=== PATIENT | female | born 1970 | race Caucasian/White ===

== ENCOUNTER 2023-04-01 17:54 | Outpatient (CLI) | payer BC, SELFPAY ==
[2023-04-02 17:16] LABS: Hemoglobin A1C 5.4 % (4.0-6.0)
[2023-04-02 17:23] LABS: Chloride 103 mmol/L (98-107); Potassium 4.4 mmoL/L (3.5-5.1); Sodium 140 mmol/L (136-145)
[2023-04-02 17:25] LABS: Basophils % 0.6 % (0.1-2.0); Eosinophils # 0.5 K/mm3 (0.0-0.4); Eosinophils % 7.2 % (0.1-12.0); Hematocrit 39.4 % (37.0-47.0); Hemoglobin 12.7 g/dL (12.2-16.2); Lymphocytes # 2.6 K/mm3 (0.7-4.5); Lymphocytes % 41.2 % (10-50); Mean Corpuscular HGB Conc 32.3 g/dL (31.8-35.4); Mean Corpuscular Hemoglobin 29.2 pg (27.0-31.2); Mean Corpuscular Volume 90.2 fl (81-99); Mean Platelet Volume 9.1 fl (7.4-10.4); Monocytes # 0.4 K/mm3 (0.1-1.0); Monocytes % 6.4 % (1.7-9.3); Neutrophils # 2.9 K/mm3 (1.8-7.8); Neutrophils % 44.6 % (37.0-80.0); Platelet Count 335 K/mm3 (142-424); Red Blood Count 4.37 M/mm3 (4.20-5.40); Red Cell Distribution Width 15.2 % (11.5-17.5); White Blood Count 6.4 K/mm3 (4.8-10.8)
[2023-04-02 17:26] LABS: Alanine Aminotransferase 24 U/L (12-78); Albumin Level 4.3 g/dl (3.5-5.0); Albumin/Globulin Ratio 1.7 (1.1-1.8); Alkaline Phosphatase 59 U/L (38-126); Anion Gap 12.4 mEq/L (5-15); Aspartate Amino Transferase 32 U/L (14-36); Bilirubin,Total 0.5 mg/dl (0.2-1.3); Blood Urea Nitrogen 17 mg/dl (7-17); Carbon Dioxide 29 mmol/L (22.0-30.0); Cholesterol 196 mg/dl (140-200); Estimated Glomerular Filt Rate 66 ml/min (>60); GFR (African American) 80 ML/MIN (>60); Globulin 2.6 g/dL (1.3-3.2); Total Protein,Serum 6.9 g/dl (6.3-8.2); Triglycerides 42 mg/dl (30-150); VLDL Cholesterol 8 mg/dL (0-40)
[2023-04-02 17:27] LABS: Calcium 8.8 mg/dl (8.4-10.2); Chol/HDL Ratio 2.5 (1-3.5); Glucose 73 mg/dl (74-100); HDL Cholesterol 78 mg/dl (40-60)
[2023-04-02 17:43] LABS: Free T4 (Free Thyroxine) 1.11 ng/dl (0.78-2.19); Triiodothryronine (T3) Uptake 33 % (23.5-40.5)
[2023-04-02 17:58] LABS: Thyroid Stimulating Hormone 2.55 uIU/mL (0.465-4.68)
[2023-04-03 08:15] LABS: LH 63.6 mIU/mL (.)
[2023-04-06 02:09] LABS: Estrogen 117 pg/mL (.)
== END 2023-04-01 23:59 ==
LOC: LAB.DROPOF 04-02 17:55
PROVIDERS: PCP Nurse Practitioner Family; Visit Provider Nurse Practitioner Family
DX: Z79.890 Hormone replacement therapy (principal)
CPT/HCPCS: 80053; 80061; 82672; 83001; 83002; 83036; 84436; 84439; 84443; 84479; 85025

== ENCOUNTER 2023-09-18 10:06 | Day surgery (SDC) | payer BC, SELFPAY ==
[2023-09-13 09:27] VITALS: BMI 31.4
[2023-09-18] VITALS (7 sets, daily range): BP systolic 110–125; BP diastolic 52–73; PULSE 59–63; RESP 16–18; TEMP 36.1–36.3; O2SAT 94–100; BMI 31.4
[2023-09-18] MEDS: LACTATED RINGERS 1000ML 1,000 ML 100 ML IV (10:34)
--- NOTE | 2023-09-18 11:28 | HMH.SCOPE ---
Procedure: Date: 09/18/23 Patient Date of :: 1970 Procedure Performed:: EGD with bougie dilation Indications:: Dysphagia Performing Provider:: Fito Palencia MD Referring Provider:: Camille Palencia APRN Sedation:: Propofol Procedure:: The gastroscope was gently passed through the incisoral orifice into the oral cavity and under direct visualization the esophagus was intubated. The endoscope was passed down the esophagus, through the stomach, and into the duodenum. Color, texture, mucosa, and anatomy of the esophagus, stomach, and duodenum were carefully examined with the scope. Findings:: Oropharynx: normal Esophagus: normal, empiric therapy performed with 58F bougie dilator EG Junction: intact at 40 cm Cardia: normal Fundus: normal Body: normal Antrum: normal Duodenal bulb: normal Duodenum (second and third portion): normal Impression: Symptomatic dysphagia treated with bougie dilation Recommendations:: Consider Repeat dilation in about THREE years or so, sooner if clinically indicated. Complications:: None Estimated blood obtained (mL): 0 Colonoscopy Component Colonoscopy Component Was a colonoscopy performed during today's procedure?: No
--- NOTE | 2023-09-18 11:54 | EXP.ANES.CKL ---
[facility] Disclaimer: The information contained in this section may have been updated after the patient was seen, as this information can be updated by other users. Medical History Low blood pressure reading Dysphagia Carpal tunnel syndrome Seasonal allergies History of endometriosis Anemia Low blood pressure History of basal cell cancer No active medical problems Surgical History History of carpal tunnel release History of hysterectomy Family History Father Diabetes Hypertension Coronary artery disease Anemia Heart attack Hyperlipidemia Stroke Grandfather Cancer Tuberculosis Social History Smoking Status: Never smoker second hand exposure: No alcohol intake: never substance use type: denies use current occupational status: employed Travel in the last 8 weeks: None household members: spouse housing: house marital status: caffeine: Yes [facility] Anesthesia Checklist Patient Identification Patient Identification: Arm Band and Verbal (Name & ) Structural Data Admitted From: Home Planned Operative Procedure/s: EGD Consent for Planned Operative Procedure(s) Verified: Yes NPO Status Verified Time NPO: 00:00 Airway Assessment Mallampati Score:: Class II C-Spine Mobility Assessed: Yes TMJ Mobility Assessed: Yes Dentition: Good Dentition Neurological Assessment Level of Consciousness: Awake Hx Seizures: No Numbness or tingling in extremities: No Anesthesia Plan Anesthesia Risk discussed: Yes Anesthesia Plan: Verified ASA Class: II Anesthesia Type: MAC
== END 2023-09-18 12:08 | disposition home or self-care (01) ==
LOC: OUTP 10:08
PROVIDERS: PCP Nurse Practitioner Family; Visit Provider Internal Medicine Gastroenterology
PROC: 0DJ08ZZ Inspection of Upper Intestinal Tract, Via Natural or Artificial Opening Endoscopic (ICD-10-PCS; CPT 43235; principal; 2023-09-18 11:00)
DX: R13.19 Other dysphagia (principal)
CPT/HCPCS: 43450; J7120

== ENCOUNTER 2023-10-25 11:15 | Day surgery (SDC) | payer BC, SELFPAY ==
[2023-10-25 11:33] VITALS: BMI 31.4
[2023-10-25 11:34] VITALS: BP 133/77; PULSE 65; RESP 17; TEMP 36.8; O2SAT 99
[2023-10-25] MEDS: LACTATED RINGERS 1000ML 1,000 ML 25 ML IV (11:42)
[2023-10-25 12:15] LABS: Chloride 109 mmol/L (98-107); Sodium 140 mmol/L (136-145)
[2023-10-25 12:18] LABS: Blood Urea Nitrogen 14 mg/dl (7-17); Calcium 8.9 mg/dl (8.4-10.2); Carbon Dioxide 28 mmol/L (22.0-30.0); Creatinine Clearance Estimated 102 mL/min (50-200); Estimated Glomerular Filt Rate 66 ml/min (>60); GFR (African American) 80 ML/MIN (>60); Glucose 90 mg/dl (74-100)
[2023-10-25 12:21] LABS: Basophils # 0.1 K/mm3 (0-0.2); Basophils % 0.7 % (0.1-2.0); Eosinophils # 0.5 K/mm3 (0.0-0.4); Eosinophils % 6.5 % (0.1-12.0); Hematocrit 42.3 % (37.0-47.0); Hemoglobin 13.2 g/dL (12.2-16.2); Lymphocytes # 2.8 K/mm3 (0.7-4.5); Mean Corpuscular HGB Conc 31.2 g/dL (31.8-35.4); Mean Corpuscular Hemoglobin 27.7 pg (27.0-31.2); Mean Corpuscular Volume 88.8 fl (81-99); Mean Platelet Volume 8.1 fl (7.4-10.4); Monocytes # 0.5 K/mm3 (0.1-1.0); Neutrophils # 3.8 K/mm3 (1.8-7.8); Neutrophils % 49.8 % (37.0-80.0); Platelet Count 261 K/mm3 (142-424); Red Blood Count 4.77 M/mm3 (4.20-5.40); Red Cell Distribution Width 17.2 % (11.5-17.5); White Blood Count 7.6 K/mm3 (4.8-10.8)
[2023-10-25] MEDS: CLINDAMYCIN PHOSPHATE/D5W 900 MG/50 ML PIGGYBACK 100 MG IV (12:23)
[2023-10-25] MEDS: LIDOCAINE 1% 20ML MDV 20 ML IJ (12:37)
--- NOTE | 2023-10-25 12:37 | P.OP_ITS ---
Date of procedure: 10/25/23 Pre-op Diagnosis:: Left anterior neck abscessed sebaceous cyst Post-op Diagnosis:: Same Procedure performed:: Incision and drainage/debridement of abscessed left anterior neck sebaceous cyst Surgeon:: Alfonzo Ramírez MD [employer]:: Trae Hill Anesthesia: local and LMA Estimated blood loss (mL): 10 Operative findings:: Complex ruptured abscessed cyst projecting to the level of the musculature Operative note:: After informed consent was obtained the patient was taken to the operating room and placed in the supine position. Anesthesia with laryngeal mask airway was achieved. Her left neck was prepped and draped in a sterile fashion. An elliptical incision was made with cautery along the central portion of the palpable lesion. Purulent fluid was evacuated from the subcutaneous tissue. Evaluation revealed a complex ruptured cyst with projection to the level of the musculature. Electrocautery was utilized to resect the ruptured cyst cavity and adjacent necrotic tissue to the degree possible. The wound was irrigated thoroughly and then packed open with Kerlix. The entire region was infiltrated with 1% lidocaine. Dressings were applied and she was transferred to recovery in stable condition. Condition: stable Disposition: PACU Specimens:: Left anterior neck ruptured/abscessed sebaceous cyst Complications:: No immediate
[2023-10-25 12:41] VITALS: BP 116/62; PULSE 68; RESP 17; TEMP 36.2; O2SAT 93
[2023-10-25 12:51] VITALS: BP 115/70; PULSE 62; RESP 17; O2SAT 97
--- NOTE | 2023-10-25 12:53 | P.PNANES_ITS ---
[facility] Disclaimer: The information contained in this section may have been updated after the patient was seen, as this information can be updated by other users. Medical History Low blood pressure reading Dysphagia Carpal tunnel syndrome Seasonal allergies History of endometriosis Anemia Low blood pressure History of basal cell cancer No active medical problems Surgical History Status post balloon dilatation of esophageal stricture History of carpal tunnel release History of hysterectomy Family History Father Diabetes Hypertension Coronary artery disease Anemia Heart attack Hyperlipidemia Stroke Grandfather Cancer Tuberculosis Social History Smoking Status: Never smoker second hand exposure: No alcohol intake: never substance use type: denies use current occupational status: employed Travel in the last 8 weeks: None household members: spouse housing: house marital status: caffeine: Yes [facility] Anesthesia Checklist Patient Identification Patient Identification: Arm Band and Family Structural Data Admitted From: Home Planned Operative Procedure/s: I and D left neck abscess. Consent for Planned Operative Procedure(s) Verified: Yes Verified Documents: Surgical Consent and History and Physical NPO Status Verified Time NPO: 00:00 Additional verifications Patient : No Anesthesia Reactions: No Hx Blood Transfusions: No Blood Transfusion Reaction: No Cephalosporin Allergy: No Previous Colonoscopy: No Airway Assessment Mallampati Score:: Class II C-Spine Mobility Assessed: Yes TMJ Mobility Assessed: Yes Dentition: Good Dentition Neurological Assessment Level of Consciousness: Awake, Alert, Appropriate and Follows Commands Hx Seizures: No Numbness or tingling in extremities: No Anesthesia Plan Anesthesia Risk discussed: Yes ASA Class: I Anesthesia Type: MAC Preoperative Comments Pre-Operative Comments: Drank black coffee this a.m.
[2023-10-25 13:01] VITALS: BP 112/70; PULSE 60; RESP 18; O2SAT 99
[2023-10-25 13:11] VITALS: BP 114/77; PULSE 56; RESP 17; O2SAT 97
== END 2023-10-25 13:29 | disposition home or self-care (01) ==
PROVIDERS: PCP Nurse Practitioner Family; Visit Provider Surgery
PROC: (CPT 10061; principal; 2023-10-25 11:30)
DX: L72.3 Sebaceous cyst (principal)
CPT/HCPCS: 10061; 80048; 85025; 96374; J1100; J2405; J3010; J7120

== ENCOUNTER 2024-02-12 12:15 | Outpatient (CLI) | payer BC, SELFPAY ==
[2024-02-12 16:28] LABS: Basophils % 0.7 % (0.1-2.0); Eosinophils # 0.3 K/mm3 (0.0-0.4); Eosinophils % 5.8 % (0.1-12.0); Hematocrit 40.9 % (37.0-47.0); Hemoglobin 13.7 g/dL (12.2-16.2); Lymphocytes # 2.4 K/mm3 (0.7-4.5); Lymphocytes % 42.9 % (10-50); Mean Corpuscular HGB Conc 33.4 g/dL (31.8-35.4); Mean Corpuscular Hemoglobin 28.9 pg (27.0-31.2); Mean Corpuscular Volume 86.6 fl (81-99); Mean Platelet Volume 8.3 fl (7.4-10.4); Monocytes # 0.3 K/mm3 (0.1-1.0); Monocytes % 5.6 % (1.7-9.3); Neutrophils # 2.6 K/mm3 (1.8-7.8); Neutrophils % 45.1 % (37.0-80.0); Platelet Count 262 K/mm3 (142-424); Red Blood Count 4.73 M/mm3 (4.20-5.40); Red Cell Distribution Width 15.4 % (11.5-17.5); White Blood Count 5.7 K/mm3 (4.8-10.8)
[2024-02-12 16:41] LABS: Alanine Aminotransferase 15 U/L (12-78); Albumin Level 4.1 g/dl (3.5-5.0); Albumin/Globulin Ratio 1.6 (1.1-1.8); Alkaline Phosphatase 69 U/L (38-126); Anion Gap 10.3 mEq/L (5-15); Aspartate Amino Transferase 26 U/L (14-36); Bilirubin,Total 0.5 mg/dl (0.2-1.3); Blood Urea Nitrogen 15 mg/dl (7-17); Calcium 9.3 mg/dl (8.4-10.2); Carbon Dioxide 28 mmol/L (22.0-30.0); Chloride 105 mmol/L (98-107); Estimated Glomerular Filt Rate 75 ml/min (>60); GFR (African American) 91 ML/MIN (>60); Globulin 2.5 g/dL (1.3-3.2); Glucose 79 mg/dl (74-100); Potassium 4.3 mmoL/L (3.5-5.1); Sodium 139 mmol/L (136-145); Total Protein,Serum 6.6 g/dl (6.3-8.2)
[2024-02-12 16:57] LABS: Hemoglobin A1C 5.4 % (4.0-6.0)
[2024-02-12 17:09] LABS: Thyroid Stimulating Hormone 2.12 uIU/mL (0.465-4.68)
== END 2024-02-12 23:59 | disposition home or self-care (01) ==
LOC: LAB.DROPOF 02-14 08:39
PROVIDERS: PCP Family Medicine; Visit Provider Family Medicine
DX: E16.2 Hypoglycemia, unspecified (principal)
CPT/HCPCS: 80050; 80053; 83036; 84443; 85025

== ENCOUNTER 2024-09-17 09:50 | Outpatient (CLI) | payer BC, SELFPAY ==
[2024-09-17 21:24] LABS: Hematocrit 43.0 % (37.0-47.0); Hemoglobin 13.1 g/dL (12.2-16.2); Immature Granulocytes % 0.3 %; Mean Corpuscular HGB Conc 30.5 g/dL (31.8-35.4); Mean Corpuscular Hemoglobin 27.9 pg (27.0-31.2); Mean Corpuscular Volume 91.7 fl (81-99); Nucleated Red Blood Cells % 0 %; Platelet Count 248 K/mm3 (142-424); Red Blood Count 4.69 M/mm3 (4.20-5.40); Red Cell Distribution Width-SD 51.4 fL; White Blood Count 6.3 K/mm3 (4.8-10.8)
[2024-09-17 21:51] LABS: Alanine Aminotransferase 12 U/L (12-78); Albumin Level 4.3 g/dl (3.5-5.0); Albumin/Globulin Ratio 1.7 (1.1-1.8); Alkaline Phosphatase 69 U/L (38-126); Anion Gap 12.1 mEq/L (5-15); Aspartate Amino Transferase 24 U/L (14-36); Bilirubin,Total 0.5 mg/dl (0.2-1.3); Blood Urea Nitrogen 18 mg/dl (7-17); Calcium 9.7 mg/dl (8.4-10.2); Carbon Dioxide 31 mmol/L (22.0-30.0); Chloride 99 mmol/L (98-107); Cholesterol 179 mg/dl (140-200); Creatinine,Serum 0.90 mg/dl (0.52-1.04); Estimated Glomerular Filt Rate 65 ml/min (>60); GFR (African American) 79 ML/MIN (>60); Globulin 2.6 g/dL (1.3-3.2); Glucose 91 mg/dl (74-100); HDL Cholesterol 69 mg/dl (40-60); Potassium 5.1 mmoL/L (3.5-5.1); Sodium 137 mmol/L (136-145); Total Protein,Serum 6.9 g/dl (6.3-8.2); Triglycerides 48 mg/dl (30-150)
[2024-09-17 22:05] LABS: 25-OH Vitamin D, Total 25.3 ng/mL (30-100)
[2024-09-17 22:06] LABS: Free Thyroxine Index 2.5 ug/dL (5.93-13.13); T4 (Thyroxine) 7.3 ug/dl (5.53-11.0); Triiodothryronine (T3) Uptake 34 % (23.5-40.5)
[2024-09-17 22:20] LABS: Thyroid Stimulating Hormone 3.14 uIU/mL (0.465-4.68)
[2024-09-17 22:22] LABS: Hemoglobin A1C 6.5 % (4.0-6.0)
[2024-09-17 22:36] LABS: Hepatitis C Ab Qual. W/ RFX NEGATIVE (Negative)
[2024-09-20 08:10] LABS: Hepatitis B Surface Antigen Negative (Negative)
--- OUTSIDE RECORDS SUMMARY | 2024-09-21 10:03 | XMS_ITS | Data Portability ---
Author Organization [facility] Address [address] [place] [address] Assessment No assessment recorded. Plan of Treatment Reminders Order Date Submit Date Provider Last Modified By Organization Details Last Modified Time Details Appointments None recorded. Lab None recorded. Referral None recorded. Procedures None recorded. Surgeries None recorded. Imaging None recorded. Medication Orders Zithromax Z-Brad 250 mg tablet 2023 024 [facility], [address] [place] [address], [id number], 10:38:24 Patient TargetsNo targets recorded. Patient Instructions Encounter Date Encounter Id Patient Instructions Last Modified By Organization Details Last Modified Time 01/17/2024 [id number] [facility] healthy choices in eating an activity [email or web address] Not available 01/22/2024 13:30:29 walking for exercise: care instructions [email or web address] Not available 01/22/2024 13:30:29 Complete antibiotic as prescribed. Tylenol for pain. Continue Flonase as prescribed. Avoid sudden head movements and bending over quickly due to possible dizziness with recent ear irrigation. [email or web address] Not available 01/17/2024 11:32:32 Plan of care discussed with patient/guardian who voiced understanding. [email or web address] Not available 01/22/2024 13:29:57 Reason for Referral None Reported. Problems Name Problem SNOMED Code Status Onset Date Resolution Date Notes Provider Name and Address Organization Details Recorded Time Disorder of upper respirato ry system 637635957 Active 2020 Problem Code: J06.9; Problem Code Type: ICD-10; Not Available [facility] 22:21:06 Acute respirato ry infection s 814089619 Active 2020 Problem Code: J22; Problem Code Type: ICD-10; Not Available [facility] 22:21:07 Left side sciatica 716621913430 104 Active 2020 Problem Code: M54.32; Problem Code Type: ICD-10; Not Available [facility] 22:21:07 Problem Notes None recorded. Procedures Surgical History Date Name Laterality Status Provider Name and Address Organization Details Recorded Time hysterectomy completed Not Available [facility] 022 22:56:24 Imaging Results None recorded. Procedure Notes None recorded. Medical Equipment None Reported. Allergies Allergen ID Allergen Name Allergen Category Reaction Reaction Severity Criticality Documentation Date Start Date Code Code System Note Provider Name and Address Organization Details Recorded Time 12056 Product containin g penicilli n (product) medicatio n Not available Not available Not available 11/21/2021 92828 8001 SNOMED Aller gyCod e: ''; Aller gyNam e: 'Peni cilli ns'; Aller gyCon ceptT ype: ''; Not Available [facility] 22:56:41 Medications Name Sig Start Date Stop Date Status Note LastModified by Organization Details LastModified Time prednisone 10 mg tablet 60mg po qd day 1 then decrease by 10mg po qd 02/16 completed Not Available Not Available Not Available azithromyci n 250 mg tablet TAKE 2 TABLETS (500 MG) BY ORAL ROUTE ONCE DAILY FOR 1 DAY THEN 1 TABLET (250 MG) BY ORAL ROUTE ONCE DAILY FOR 4 DAYS active Not Available Not Available No t Available sulfamethox azole 400 mg-trimetho prim 80 mg tablet TAKE ONE TABLET BY MOUTH TWICE DAILY active Not Available Not Available No t Available hydrocodone 5 mg-acetamin ophen 325 mg tablet TAKE ONE TABLET BY MOUTH EVERY 6 HOURS NEEDED FOR post-op pain 01/16 completed Not Available Not Available Not Available Femring 0.05 mg/24 hr vaginal active Not Available Not Available N ot Available Zyrtec 2020 active Not Available Not Available Not Avai lable Femring 2020 active Not Available Not Available Not Avai lable Vitals Date Recorded Body height Body mass index (BMI) Body weight Body temperature Heart rate Oxygen saturation Oxygen saturation in Arterial blood by Pulse oximetry Systolic And Diastolic Provider Name and Address Organization Details Last Updated DateTime 4 170.18 cm 33.7 kg/m2 19019.3 6 g 99 [degF] 70 /min 99 % 99 % 130/88 mm[Hg] Luly Mai [facility] [employer], [facility]. 4 09:50:07 Social History Question Answer Notes LastModified by Organizat ion Details LastModified Time Tobacco Smoking Status Never Smoker SocialHis toryQuest ion: 'Tobacco/ Alcohol/S upplement s'; SocialHis toryRespo nse: 'Never Smoker'; Not Available [facility] 11/21/2021 23:01:32 Is Your Home Air Conditioned? Yes [email or web address] Information not available 01/17/2024 Do You Wear A Helmet When Biking? No [email or web address] Information not available 01/17/2024 Are You Blind Or Do You Have Difficulty Seeing? No Information n ot available 01/17/2024 Are You A Caregiver? No [email or web address] Information not available 01/17/2024 In The 14 Days Before Symptom Onset, Have You Had Close Contact With A Laboratory-confirm ed COVID-19 While That Case Was Ill? No [email or web address] Information n ot available 01/17/2024 In The 14 Days Before Symptom Onset, Have You Had Close Contact With A Person Who Is Under Investigation For COVID-19 While That Person Was Ill? No Information not available 01/17/2024 Have You Been To An Area Known To Be High Risk For COVID-19? No [email or web address] Information not available 01/17/2024 Are You Deaf Or Do You Have Serious Difficulty Hearing? No [email or web address] Information not available 01/17/2024 Have There Been Any Changes To Your Family Or Social Situation? No Information no t available 01/17/2024 Are There Any Guns Present In Your Home? No [email or web address] Information not available 01/17/2024 Do You Use Your Seat Belt Or Car Seat Routinely? Yes [email or web address] Information not available 01/17/2024 Do You Have Smoke And Carbon Monoxide Detectors In Your Home? Yes [email or web address] Information not available 01/17/2024 Are You Passively Exposed To Smoke? No [email or web address] Information no t available 01/17/2024 Are There Any Smokers In Your House? No [email or web address] Information not available 01/17/2024 Do You Participate In Social Media? Yes [email or web address] Information not available 01/17/2024 Do You Use Sunscreen Routinely? Yes [email or web address] Information not available 01/17/2024 Has Tobacco Cessation Counseling Been Provided? No [email or web address] Information not available 01/17/2024 Have You Recently Traveled Abroad? No [email or web address] Information not available 01/17/2024 Do You Have Difficulty Walking Or Climbing Stairs? No [email or web address] Information not available 01/17/2024 Sex: Unknown Functional Status Question Answer Note LastModified by Organizat ion Details LastModified Time Do you use any illicit or recreational drugs? No [email or web address] Information not available 01/17/2024 Do you or have you ever used any other forms of tobacco or nicotine? No [email or web address] Information not available 01/17/2024 Are you currently employed? Yes Information not available 01/17/2024 Do you have transportation difficulties? No [email or web address] Information not available 01/17/2024 Are you able to walk? YESWOREST [email or web address] Information not available 01/17/2024 Do you have difficulty doing errands alone? No [email or web address] Information not available 01/17/2024 Are you able to care for yourself? Yes [email or web address] Information not available 01/17/2024 Do you have difficulty dressing or bathing? No [email or web address] Information not available 01/17/2024 Mental Status Question Answer Note LastModified by Organization D etails LastModified Time Do you have difficulty concentrating, remembering or making decisions? No [email or web address] Information no t available 01/17/2024 Family History Relationship Description Onset Age of this Age Resolved Age Notes LastModified by Organization Details LastModified Time Unspecified Relation Family history of diabetes mellitus type 2 Relati ve: ''; [email or web address] Not available 11/21/2021 22:57:02 Unspecified Relation Family history of Myocardial infarction Relati ve: ''; [email or web address] Not available 11/21/2021 22:57:02 Unspecified Relation Family history of Hypertension Relati ve: ''; [email or web address] Not available 11/21/2021 22:57:02 Notes:*Procedure Description : Documented family medical history in father*Relative: Father Medical History Condition Response Allergies (Food, seasonal, environmental ) Y Gynecological HistoryNo gynecological history recorded. Obstetrics History GPAL:G 0 P 0 0 0 0 Immunizations Vaccine Type Date Status Note Provider Nam e and Address Organization Details Recorded Time Influenza, split virus, trivalent, preservative 4 completed Dacia Leach PA-C [address] [place] [address], [phone], [facility] [employer] 01/01/2024 13:23:52 Past Encounters Encounter ID Performer Location Encounter Start Date Encounter Closed Date Diagnosis/Indication Diagnosis SNOMED-CT Code Diagnosis ICD10 Code Diagnosis Note [id number] Dacia Leach PA-C [facility] [address] [id number] 01/01/2024 13:05:54 01/01/2024 13:28:50 Administration of influenza vaccine 21603661 Z23 [id number] Dacia Leach PA-C [facility] [address] [id number] 01/17/2024 09:48:36 01/22/2024 15:01:39 Acute left otitis media 720559067 H66.92 Antibiotic as prescribed . Tylenol or Motrin for pain. F/u in 3-5 days if not improved. Impacted c erumen in left ear 9125735180 204673 H61.22 Explained patient may have dizziness for 1-2 days due to ear irrigation and wax removal so avoid sudden head movements. Only use Q-tips on outside of ear. Body mass index 30+ - obesity 045849686 Z68.33 Tobacco non-user 3096148 001 02063 Z13.89 Health Concerns Section Related Observation LastModified by Organization Detai ls LastModified Time None Recorded Concern Status LastModified by Organization Details LastModified Time None Recorded Advance Directives Directive None Recorded Payers Insurance Date Sequence Insurance Name Policy Number Policy Conner Covered Member ID Cnoner Member ID Guarantor Name 01/17/2024 1 [place]: [place] [id number] Karis Skinner [id number] Karis Skinner Notes Date Note Type Note Provider Name and Address Organization Details Recorded Time 01/17/2024 text/html Ear Pain Brief HPIReported bypatient.Location:[facility] Onset/Timing:new onset; started 2days ago; fullness with decreased hearing not pain Quality:no itching; no discharge from the ears; no burning Severity:no fever Context:no recent URI; no recent trauma; no recent ear infection; no recent swimming; no dental problems; no recent airplane travel; non-smoker Alleviating factors:not taking any medicaiton for symptoms Associated Symptoms:no vertigo; no jaw popping or clicking; no temporomandibular joint disease; no discharge from ear; no sore throat; no dental pain; no tinnitus;nasal discharge;sense of fullness/pressure;muff led hearing Dacia Leach PA-C [address] [place] [address], [phone], [facility] [employer] 01/22/2024 13:30:36 OBGyn Episode No OBEpisode recorded.
== END 2024-09-17 23:59 | disposition home or self-care (01) ==
LOC: LAB.DROPOF 09-21 09:51
PROVIDERS: PCP Nurse Practitioner Family; Visit Provider Nurse Practitioner Family
DX: R63.5 Abnormal weight gain (principal); Z11.4 Encounter for screening for human immunodeficiency virus [HIV]; Z11.59 Encounter for screening for other viral diseases
CPT/HCPCS: 80053; 80061; 80074; 82306; 83036; 84436; 84443; 84479; 85025; 87340; 87389